=== PATIENT | male | born 2000 | race Caucasian/White ===

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

== ENCOUNTER 2018-01-20 07:28 | Emergency (ER) | payer BC ==
--- NOTE | 2018-01-20 07:32 | ER Report ---
History and Physical Time Seen By MD: 07:31 HPI/ROS CHIEF COMPLAINT: Nausea and vomiting times one week. HISTORY OF PRESENT ILLNESS: Patient is a 17-year-old male here with complaints of nausea and vomiting for one week with reports of several episodes of vomiting each day. He has been attempting to hold down bland food and fluids however rep orts having persistent nausea and vomiting. Denies other medical problems. He does report a remote history of activity-induced asthma but currently is on no medications. Patient admits to chills without fevers. REVIEW OF SYSTEMS: Constitutional: No fever, + chills. Eyes: No discharge. ENT: No sore throat. Cardiovascular: No chest pain, no palpitations. Respiratory: No cough, no shortness of breath. Gastrointestinal: + mild diffuse abdominal pain, + nausea and vomiting. Genitourinary: No hematuria. Musculoskeletal: No back pain. Skin: No rashes. Neurological: No headache. Allergies: Coded Allergies: No Known Drug Allergies (Unverified , 01/20/18) Home Meds Active Scripts Ondansetron (ONDANSETRON ODT) 4 Mg Tab.rapdis, 4 MG PO Q6-8H, #30 TAB Prov:LAURENCE CHAPMAN DO 01/20/18 Hx Substance Use Disorder: No Hx Alcohol Use: No Constitutional Vital Sign - Last 24 Hours 01/20/18 01/20/18 01/20/18 01/20/18 07:28 07:34 07:57 07:58 Temp 98.0 Pulse 84 83 85 Resp 12 B/P (MAP) 136/100 (112) 136/100 Pulse Ox 96 96 O2 Delivery Room Air Room Air 01/20/18 01/20/18 01/20/18 01/20/18 08:00 08:05 08:30 08:35 Pulse 95 76 B/P (MAP) 130/80 (97) 122/76 (91) Pulse Ox 96 94 O2 Delivery Room Air Room Air 01/20/18 09:00 B/P (MAP) 122/76 (91) Physical Exam General Appearance: The patient is alert, has no immediate need for airway protection and no signs of toxicity. NAD Eyes: Pupils equal and round no pallor or injection. ENT, Mouth: Mucous membranes are moist. Respiratory: There are no retractions, lungs are clear to auscultation. Cardiovascular: Regular rate and rhythm. Gastrointestinal: Abdomen is soft and + mildly tender in all quadrants without rebound or guarding, no masses, bowel sounds normal. Neurological: No focal neuro deficits Skin: Warm and dry, no rashes. Musculoskeletal: Neck is supple non tender. Extremities are nontender, nonswollen and have full range of motion. DIFFERENTIAL DIAGNOSIS: After history and physical exam differential diagnosis was considered for abdominal pain including but not limited to appendicitis, cholecystitis, gastritis and urinary tract infection, gastroenteritis, food poisoning, viral syndrome Medical Decision Making Data Points Result Diagram: 01/20/18 0811 01/20/18 0811 Laboratory Hematology Test 01/20/18 07:32 01/20/18 08:11 Urine Color Yellow Urine Clarity Clear Urine pH 7.0 pH (4.8-9.5) Urine Specific [place] 1.015 Urine Protein Negative mg/dL (NEGATIVE) Urine Glucose (UA) Negative mg/dL (NEGATIVE) Urine Ketones Negative mg/dL (NEGATIVE) Urine Blood Negative (NEGATIVE) Urine Nitrite Negative (NEGATIVE) Urine Bilirubin Negative (NEGATIVE) Urine Urobilinogen Negative mg/dL (0.2-1.9) Urine Leukocyte Esterase Negative (NEGATIVE) Urine RBC <1 /HPF (0-2/HPF) Urine WBC <1 /HPF (0-5/HPF) Urine Squamous Epithelial Cells None /LPF (</=FEW) Urine Bacteria Negative /HPF (NONE-FEW) Urine Mucus None /HPF (NONE-FEW) Red Blood Count 5.46 M/uL (4.00-5.60) Mean Corpuscular Volume 90.0 fL (80.0-96.0) Mean Corpuscular Hemoglobin 30.8 pg (26.0-33.0) Mean Corpuscular Hemoglobin Concent 34.2 g/dL (32.0-36.0) Red Cell Distribution Width 13.3 % (11.5-14.5) Mean Platelet Volume 8.3 fL (7.2-11.1) Neutrophils (%) (Auto) 70.5 % (39.4-72.5) Lymphocytes (%) (Auto) 13.2 % (17.6-49.6) Monocytes (%) (Auto) 9.6 % (4.1-12.4) Eosinophils (%) (Auto) 6.1 % (0.4-6.7) Basophils (%) (Auto) 0.6 % (0.3-1.4) Nucleated RBC Relative Count (auto) 0.0 /100WBC Neutrophils # (Auto) 6.9 K/uL (2.0-7.4) Lymphocytes # (Auto) 1.3 K/uL (1.3-3.6) Monocytes # (Auto) 0.9 K/uL (0.3-1.0) Eosinophils # (Auto) 0.6 K/uL (0.0-0.5) Basophils # (Auto) 0.1 K/uL (0.0-0.1) Nucleated RBC Absolute Count (auto) 0.00 K/uL Peripheral Blood Smear No Y/N Sodium Level 140 mmol/L (137-145) Potassium Level 4.4 mmol/L (3.5-5.0) Chloride Level 105 mmol/L (98-107) Carbon Dioxide Level 26 mmol/L (22-30) Blood Urea Nitrogen 12 mg/dl (9-21) Creatinine 0.70 mg/dl (0.66-1.25) Glomerular Filtration Rate Calc > 60.0 Random Glucose 106 mg/dl (75-110) Calcium Level 9.9 mg/dl (8.4-10.2) Total Bilirubin 1.1 mg/dl (0.2-1.3) Aspartate Amino Transf (AST/SGOT) 19 U/L (0-35) Alanine Aminotransferase (ALT/SGPT) 25 U/L (0-56) Alkaline Phosphatase 52 U/L (0-126) C-Reactive Protein < 0.5 mg/dl (<1.0) Total Protein 7.8 g/dl (6.3-8.2) Albumin 4.6 g/dl (3.5-5.0) Lipase 71 U/L (23-300) Chemistry Test 01/20/18 07:32 01/20/18 08:11 Urine Color Yellow Urine Clarity Clear Urine pH 7.0 pH (4.8-9.5) Urine Specific [place] 1.015 Urine Protein Negative mg/dL (NEGATIVE) Urine Glucose (UA) Negative mg/dL (NEGATIVE) Urine Ketones Negative mg/dL (NEGATIVE) Urine Blood Negative (NEGATIVE) Urine Nitrite Negative (NEGATIVE) Urine Bilirubin Negative (NEGATIVE) Urine Urobilinogen Negative mg/dL (0.2-1.9) Urine Leukocyte Esterase Negative (NEGATIVE) Urine RBC <1 /HPF (0-2/HPF) Urine WBC <1 /HPF (0-5/HPF) Urine Squamous Epithelial Cells None /LPF (</=FEW) Urine Bacteria Negative /HPF (NONE-FEW) Urine Mucus None /HPF (NONE-FEW) White Blood Count 9.8 k/uL (4.5-11.0) Red Blood Count 5.46 M/uL (4.00-5.60) Hemoglobin 16.8 g/dL (14.0-18.0) Hematocrit 49.1 % (42.0-52.0) Mean Corpuscular Volume 90.0 fL (80.0-96.0) Mean Corpuscular Hemoglobin 30.8 pg (26.0-33.0) Mean Corpuscular Hemoglobin Concent 34.2 g/dL (32.0-36.0) Red Cell Distribution Width 13.3 % (11.5-14.5) Platelet Count 254 K/uL (150-450) Mean Platelet Volume 8.3 fL (7.2-11.1) Neutrophils (%) (Auto) 70.5 % (39.4-72.5) Lymphocytes (%) (Auto) 13.2 % (17.6-49.6) Monocytes (%) (Auto) 9.6 % (4.1-12.4) Eosinophils (%) (Auto) 6.1 % (0.4-6.7) Basophils (%) (Auto) 0.6 % (0.3-1.4) Nucleated RBC Relative Count (auto) 0.0 /100WBC Neutrophils # (Auto) 6.9 K/uL (2.0-7.4) Lymphocytes # (Auto) 1.3 K/uL (1.3-3.6) Monocytes # (Auto) 0.9 K/uL (0.3-1.0) Eosinophils # (Auto) 0.6 K/uL (0.0-0.5) Basophils # (Auto) 0.1 K/uL (0.0-0.1) Nucleated RBC Absolute Count (auto) 0.00 K/uL Peripheral Blood Smear No Y/N Glomerular Filtration Rate Calc > 60.0 Calcium Level 9.9 mg/dl (8.4-10.2) Total Bilirubin 1.1 mg/dl (0.2-1.3) Aspartate Amino Transf (AST/SGOT) 19 U/L (0-35) Alanine Aminotransferase (ALT/SGPT) 25 U/L (0-56) Alkaline Phosphatase 52 U/L (0-126) C-Reactive Protein < 0.5 mg/dl (<1.0) Total Protein 7.8 g/dl (6.3-8.2) Albumin 4.6 g/dl (3.5-5.0) Lipase 71 U/L (23-300) Urinalysis Test 01/20/18 07:32 Urine Color Yellow Urine Clarity Clear Urine pH 7.0 pH (4.8-9.5) Urine Specific [place] 1.015 Urine Protein Negative mg/dL (NEGATIVE) Urine Glucose (UA) Negative mg/dL (NEGATIVE) Urine Ketones Negative mg/dL (NEGATIVE) Urine Blood Negative (NEGATIVE) Urine Nitrite Negative (NEGATIVE) Urine Bilirubin Negative (NEGATIVE) Urine Urobilinogen Negative mg/dL (0.2-1.9) Urine Leukocyte Esterase Negative (NEGATIVE) Urine RBC <1 /HPF (0-2/HPF) Urine WBC <1 /HPF (0-5/HPF) Urine Squamous Epithelial Cells None /LPF (</=FEW) Urine Bacteria Negative /HPF (NONE-FEW) Urine Mucus None /HPF (NONE-FEW) ED Course/Re-evaluation ED Course Patient is a 17-year-old male here with complaints of nausea and vomiting for approximately one week. Patient reports intermittent chills, several episodes of vomiting per day, persistent nausea. Denies severe localized abdominal pains, and there is no rebound or guarding on examination. Patient was notably mildly tachycardic rates around 100, abdominal exam was nonfocal. Patient is afebrile, hemodynamically stable otherwise. Patient labs were found to be unremarkable. Being that the patient's physical exam was unremarkable and lab findings were also unremarkable, imaging was not pursued at this time. I advised the patient to return immediately if you develop fevers, worsening abdominal pain at which time the patient may need further imaging. Patient voiced understanding of plan. He was given 2 L of normal saline fluids, Zofran with significant relief of symptoms. Patient passed oral challenge and was given a prescription for Zofran for outpatient treatment. Patient was stable at time of discharge. Decision to Disposition Date: Jan 20, 2018 Decision to Disposition Time: 09:06 Depart Departure Latest Vital Signs Vital Signs Date Time Temp Pulse Resp B/P (MAP) Pulse Ox O2 Delivery O2 Flow Rate FiO2 01/20/18 09:00 122/76 (91) 01/20/18 08:35 76 94 Room Air 01/20/18 07:57 98.0 12 Impression: Primary Impression: Nausea & vomiting Additional Impression: Dehydration Condition: Improved Disposition: HOME OR SELF-CARE New Scripts Ondansetron (ONDANSETRON ODT) 4 Mg Tab.rapdis 4 MG PO Q6-8H, #30 TAB Prov: LAURENCE CHAPMAN DO 01/20/18 Patient Instructions: Acute Nausea and Vomiting (ED) Additional Instructions: Please drink plenty of water. You may take 1 tablet of Zofran every 6-8 hours as needed for nausea and vomiting. Please return promptly if you develop fevers, worsening abdominal pain, inability keep down food or fluids. Please follow-up with your family doctor in the next week. Problem Qualifiers LAURENCE CHAPMAN DO Jan 20, 2018 07:32
[2018-01-20] MEDS ORDERED: NS(*) 0.9% 1000 ML BAG 1,000 ML IV ONE ×2 (07:52→08:45)
[2018-01-20] MEDS ORDERED: ONDANSETRON 4 MG/2 ML VIAL IVP ONE (07:55)
[2018-01-20 08:24] LABS: PLATELET COUNT, AUTOMATED 254 K/uL (150-450)
[2018-01-20] MEDS ORDERED: ONDA4TAB9 PO (08:59)
[2018-01-20 09:00] VITALS: BP 122/76
== END 2018-01-20 09:38 | disposition home or self-care (01) ==
LOC: ER 07:34
DX: R11.2 Nausea with vomiting, unspecified (principal); E86.0 Dehydration
CPT/HCPCS: 81001; 83690; 85025; 86140; 96361; 96374; 99284; J2405; J7030; 82040; 82247; 82310; 82374; 82435; 82565; 82947; 84075; 84132; 84155; 84295; 84450; 84460; 84520

== ENCOUNTER 2018-03-29 11:33 | Emergency (ER) | payer BC ==
[~2018-03-29 11:33] MED LIST: ONDA4TAB9 PO
--- NOTE | 2018-03-29 11:45 | ER Report ---
History and Physical Time Seen By MD: 11:45 HPI/ROS CHIEF COMPLAINT: Nausea and vomiting HISTORY OF PRESENT ILLNESS: This is a 18-year-old male who presents to the emergency department for nausea and vomiting. Patient states that over the last month he's had nausea and vomiting and diarrhea, no blood noted. He was seen in evaluated in the emergency departments was given some nausea medications which did seem to help a little, however when he was on break he saw his primary care provider in [place], states they were interpreted concerned and no imaging or repeat studies were done at that time. Patient is now back, ready to start sc hool again help her over the last 3 days he's had increased epigastric pain with increased nausea, vomiting and diarrhea, still no blood. No fevers or chills. No chest pain or shortness of breath. No rashes. REVIEW OF SYSTEMS: Constitutional: No fever, no chills. Eyes: No discharge. ENT: No sore throat. Cardiovascular: No chest pain, no palpitations. Respiratory: No cough, no shortness of breath. Gastrointestinal: As above. Genitourinary: No hematuria. Musculoskeletal: No back pain. Skin: No rashes. Neurological: No headache. Allergies: Coded Allergies: No Known Drug Allergies (Unverified , 01/20/18) Home Meds Discontinued Scripts Ondansetron 4 Mg Odt (ONDANSETRON 4 MG ODT) 4 Mg Tab.rapdis, 4 MG PO Q6-8H, #30 TAB Prov:LAURENCE CHAPMAN DO 01/20/18 Past Medical/Surgical History The patient has a past medical and surgical history of wearing glasses. Reviewed Nurses Notes: Yes Hx Substance Use Disorder: No Hx Alcohol Use: No Constitutional Vital Sign - Last 24 Hours 03/29/18 03/29/18 03/29/18 03/29/18 11:42 11:43 12:00 12:03 Temp 98.8 Pulse 90 92 Resp 14 B/P (MAP) 155/114 155/114 (128) 130/87 (101) Pulse Ox 96 95 03/29/18 03/29/18 03/29/18 03/29/18 12:30 12:33 12:38 13:30 Pulse 90 98 B/P (MAP) 130/88 (102) 138/99 (112) Pulse Ox 89 96 03/29/18 13:38 Pulse 93 Pulse Ox 94 Physical Exam General Appearance: patient is alert, has no immediate need for airway protection and no signs of toxicity. Eyes: Pupils equal and round no pallor or injection. ENT, Mouth: Mucous membranes are moist. Respiratory: There are no retractions, lungs are clear to auscultation. Cardiovascular: Regular rate and rhythm. Gastrointestinal: Abdomen is soft, mild left upper quadrant discomfort with palpation, normoactive bowel sounds, no abdominal bruits. No rebound tenderness. Skin: Warm and dry, no rashes. Musculoskeletal: Neck is supple non tender. Extremities are nontender, nonswollen and have full range of motion. DIFFERENTIAL DIAGNOSIS: After history and physical exam differential diagnosis was considered for abdominal pain including but not limited to appendicitis, cholecystitis, gastritis and urinary tract infection.nausea and vomiting including but not limited to gastroenteritis, gastritis, appendicitis, and medication side effect. Medical Decision Making Data Points Result Diagram: 03/29/18 1150 03/29/18 1150 Laboratory Hematology Test 03/29/18 11:50 03/29/18 12:52 Red Blood Count 5.77 M/uL (4.00-5.60) Mean Corpuscular Volume 90.0 fL (80.0-96.0) Mean Corpuscular Hemoglobin 30.6 pg (26.0-33.0) Mean Corpuscular Hemoglobin Concent 34.0 g/dL (32.0-36.0) Red Cell Distribution Width 13.4 % (11.5-14.5) Mean Platelet Volume 8.0 fL (7.2-11.1) Neutrophils (%) (Auto) 70.6 % (39.4-72.5) Lymphocytes (%) (Auto) 14.4 % (17.6-49.6) Monocytes (%) (Auto) 13.1 % (4.1-12.4) Eosinophils (%) (Auto) 1.8 % (0.4-6.7) Basophils (%) (Auto) 0.1 % (0.3-1.4) Nucleated RBC Relative Count (auto) 0.0 /100WBC Neutrophils # (Auto) 8.7 K/uL (2.0-7.4) Lymphocytes # (Auto) 1.8 K/uL (1.3-3.6) Monocytes # (Auto) 1.6 K/uL (0.3-1.0) Eosinophils # (Auto) 0.2 K/uL (0.0-0.5) Basophils # (Auto) 0.0 K/uL (0.0-0.1) Nucleated RBC Absolute Count (auto) 0.00 K/uL Sodium Level 141 mmol/L (137-145) Potassium Level 4.0 mmol/L (3.5-5.0) Chloride Level 103 mmol/L (98-107) Carbon Dioxide Level 22 mmol/L (22-30) Blood Urea Nitrogen 12 mg/dl (9-21) Creatinine 0.80 mg/dl (0.66-1.25) Glomerular Filtration Rate Calc > 60.0 Random Glucose 101 mg/dl (75-110) Calcium Level 10.3 mg/dl (8.4-10.2) Total Bilirubin 2.6 mg/dl (0.2-1.3) Aspartate Amino Transf (AST/SGOT) 25 U/L (0-35) Alanine Aminotransferase (ALT/SGPT) 17 U/L (0-56) Alkaline Phosphatase 72 U/L (0-126) Total Protein 8.9 g/dl (6.3-8.2) Albumin 5.3 g/dl (3.5-5.0) Lipase 94 U/L (23-300) Helicobacter pylori IgG Antibody Negative (NEGATIVE) Urine Color Yellow Urine Clarity Clear Urine pH 6.0 pH (4.8-9.5) Urine Specific Trail 1.025 Urine Protein 30 mg/dL (NEGATIVE) Urine Glucose (UA) Negative mg/dL (NEGATIVE) Urine Ketones 80 mg/dL (NEGATIVE) Urine Blood Negative (NEGATIVE) Urine Nitrite Negative (NEGATIVE) Urine Bilirubin Negative (NEGATIVE) Urine Urobilinogen 2.0 mg/dL (0.2-1.9) Urine Leukocyte Esterase Negative (NEGATIVE) Urine RBC None /HPF (0-2/HPF) Urine WBC 1 /HPF (0-5/HPF) Urine Squamous Epithelial Cells None /LPF (</=FEW) Urine Bacteria Negative /HPF (NONE-FEW) Urine Mucus Few /HPF (NONE-FEW) Chemistry Test 03/29/18 11:50 03/29/18 12:52 White Blood Count 12.3 k/uL (4.5-11.0) Red Blood Count 5.77 M/uL (4.00-5.60) Hemoglobin 17.7 g/dL (14.0-18.0) Hematocrit 51.9 % (42.0-52.0) Mean Corpuscular Volume 90.0 fL (80.0-96.0) Mean Corpuscular Hemoglobin 30.6 pg (26.0-33.0) Mean Corpuscular Hemoglobin Concent 34.0 g/dL (32.0-36.0) Red Cell Distribution Width 13.4 % (11.5-14.5) Platelet Count 275 K/uL (150-450) Mean Platelet Volume 8.0 fL (7.2-11.1) Neutrophils (%) (Auto) 70.6 % (39.4-72.5) Lymphocytes (%) (Auto) 14.4 % (17.6-49.6) Monocytes (%) (Auto) 13.1 % (4.1-12.4) Eosinophils (%) (Auto) 1.8 % (0.4-6.7) Basophils (%) (Auto) 0.1 % (0.3-1.4) Nucleated RBC Relative Count (auto) 0.0 /100WBC Neutrophils # (Auto) 8.7 K/uL (2.0-7.4) Lymphocytes # (Auto) 1.8 K/uL (1.3-3.6) Monocytes # (Auto) 1.6 K/uL (0.3-1.0) Eosinophils # (Auto) 0.2 K/uL (0.0-0.5) Basophils # (Auto) 0.0 K/uL (0.0-0.1) Nucleated RBC Absolute Count (auto) 0.00 K/uL Glomerular Filtration Rate Calc > 60.0 Calcium Level 10.3 mg/dl (8.4-10.2) Total Bilirubin 2.6 mg/dl (0.2-1.3) Aspartate Amino Transf (AST/SGOT) 25 U/L (0-35) Alanine Aminotransferase (ALT/SGPT) 17 U/L (0-56) Alkaline Phosphatase 72 U/L (0-126) Total Protein 8.9 g/dl (6.3-8.2) Albumin 5.3 g/dl (3.5-5.0) Lipase 94 U/L (23-300) Helicobacter pylori IgG Antibody Negative (NEGATIVE) Urine Color Yellow Urine Clarity Clear Urine pH 6.0 pH (4.8-9.5) Urine Specific Trail 1.025 Urine Protein 30 mg/dL (NEGATIVE) Urine Glucose (UA) Negative mg/dL (NEGATIVE) Urine Ketones 80 mg/dL (NEGATIVE) Urine Blood Negative (NEGATIVE) Urine Nitrite Negative (NEGATIVE) Urine Bilirubin Negative (NEGATIVE) Urine Urobilinogen 2.0 mg/dL (0.2-1.9) Urine Leukocyte Esterase Negative (NEGATIVE) Urine RBC None /HPF (0-2/HPF) Urine WBC 1 /HPF (0-5/HPF) Urine Squamous Epithelial Cells None /LPF (</=FEW) Urine Bacteria Negative /HPF (NONE-FEW) Urine Mucus Few /HPF (NONE-FEW) Urinalysis Test 03/29/18 12:52 Urine Color Yellow Urine Clarity Clear Urine pH 6.0 pH (4.8-9.5) Urine Specific Trail 1.025 Urine Protein 30 mg/dL (NEGATIVE) Urine Glucose (UA) Negative mg/dL (NEGATIVE) Urine Ketones 80 mg/dL (NEGATIVE) Urine Blood Negative (NEGATIVE) Urine Nitrite Negative (NEGATIVE) Urine Bilirubin Negative (NEGATIVE) Urine Urobilinogen 2.0 mg/dL (0.2-1.9) Urine Leukocyte Esterase Negative (NEGATIVE) Urine RBC None /HPF (0-2/HPF) Urine WBC 1 /HPF (0-5/HPF) Urine Squamous Epithelial Cells None /LPF (</=FEW) Urine Bacteria Negative /HPF (NONE-FEW) Urine Mucus Few /HPF (NONE-FEW) EKG/Imaging Imaging Location: [facility] [place] Patient: Ana María Dias : 2000 Visit/Account:[id number] Date of Sevice: 03/29/2018 COMPUTED TOMOGRAPHY OF THE Abdomen and Pelvis with CONTRAST INDICATION: Abdominal pain with nausea, vomiting, and diarrhea. TECHNIQUE: Contiguous axial 3.[address] images were obtained through the abdomen and pelvis after 75 mL Isovue-370. Coronal and sagittal reformatted images were submitted. COMPARISON: None.. FINDINGS: Lung bases: Clear Liver and hepatic vasculature: Normal Gallbladder and bile ducts: Normal Spleen: Normal Pancreas: Normal Adrenals: Normal Kidneys, ureters and bladder: Normal Retroperitoneum and aorta: Normal caliber aorta. GI tract, mesentery and peritoneum: No obstruction or distention. No free fluid or free air. Normal appendix is small and gas-filled. Prostate: Unremarkable. Bones and soft tissues: No acute osseous abnormality or significant degenerative findings. IMPRESSION: No clear evidence of acute intra-abdominal abnormality. One of the following dose optimization techniques was utilized in the performance of this exam: Automated exposure control; adjustment of the mA and/or kV according to the patient's size; or use of an iterative reconstruction technique. Specific details can be referenced in the facility's radiology CT exam operational policy. Report Dictated By: Bailee Woodson MD at 03/29/2018 1:29 PM Report E-Signed By: Bailee Woodson MD at 03/29/2018 1:38 PM WSN:[email or web address] ED Course/Re-evaluation Clinical Indication for ER IV: Hydration, IV Access ED Course The patient was admitted to room. A history and physical were obtained. Differential diagnoses were considered. IV was started. A CBC, CMP, 1 L normal saline bolus was given.4 mg IV Zofran, 40 mg IV Protonix with little relief, GI cocktail given with moderate relief.CBC showing white count 12.3, calcium 10.3, total bili 2.6, concentrated urine with ketonuria, and protein, negative H. pylori. Normal lipase. A CT of the abdomen and pelvis showing no acute pathology. I reviewed the results with the patient. As he was feeling better, and no stool sample was collected, I did send the patient home with a prescription for stool samples and the results will go to Dr. Byrd. Patient does have a follow-up appointment next week scheduled. I also started patient on 4 mg Protonix for the next 2 weeks. I also recommended following up with surgery for an endoscopy as there was concern of an ulcer. The patient is unable to come up with a pattern for his nausea vomiting diarrhea, I did not treat with antibiotics as nothing noted on CT, will wait for the stool samples. Mild elevation in WBC's likely from the stress of intermittent vomiting. The patient was agreeable with this plan of care, encouraged to eat a bland to clear liquid diet. No other questions or concerns at this time and discharged home. Decision to Disposition Date: Mar 29, 2018 Decision to Disposition Time: 14:17 Depart Departure Latest Vital Signs Vital Signs Date Time Temp Pulse Resp B/P (MAP) Pulse Ox O2 Delivery O2 Flow Rate FiO2 03/29/18 13:38 93 94 03/29/18 13:30 138/99 (112) 03/29/18 11:42 98.8 14 Impression: Primary Impression: Nausea & vomiting Additional Impression: Diarrhea Condition: Improved Disposition: HOME OR SELF-CARE Referrals: [place] BYRD,ARLENE CAREY MD 5 Days New Scripts Ondansetron Hcl (ZOFRAN) 4 Mg Tablet 4 MG PO Q4-6H PRN for prn, #20 TAB Prov: YONATHAN MUÑOZ 03/29/18 Patient Instructions: Acute Diarrhea (ED), Acute Nausea and Vomiting (ED), Clear Liquid Diet (ED) Additional Instructions: There were no concerning findings today, CT looks normal. Please start 40mg of Protonix once a day for the next 14 days. Follow up with [facility] as scheduled. Drink plenty of fluids. Get plenty of rest. Once you collect a stool sample then return to the front admitting area, with the script. Return to the ED for any other concerns or worsening symptoms. Either a bland diet or clear liquids for the next 24 hours. Problem Qualifiers Primary Impression: Nausea & vomiting Vomiting type: unspecified Vomiting Intractability: non-intractable Qualified Codes: R11.2 - Nausea with vomiting, unspecified Additional Impression: Diarrhea Diarrhea type: unspecified type Qualified Codes: R19.7 - Diarrhea, unspecified YONATHAN MUÑOZ Mar 29, 2018 11:45
[2018-03-29] MEDS ORDERED: ONDANSETRON 4 MG/2 ML VIAL IVP ONE (11:55)
[2018-03-29] MEDS ORDERED: PANTOPRAZOLE SOD 40 MG IV VIAL IVP ONE (11:55)
[2018-03-29] MEDS ORDERED: NS(*) 0.9% 1000 ML BAG 1,000 ML IV ONE (11:55)
[2018-03-29 12:03] LABS: PLATELET COUNT, AUTOMATED 275 K/uL (150-450)
[2018-03-29] MEDS ORDERED: LIDOCAINE 2% VISC SLN 15ML UDC PO ONE (12:45)
[2018-03-29] MEDS ORDERED: MAG HYD/AL HYD/SIMETH 30ML UDC PO ONE (12:45)
[2018-03-29] MEDS ORDERED: IOPAMIDOL 76% 100 ML INFUS BTL 100 ML ONE (12:55)
[2018-03-29 13:30] VITALS: BP 138/99
--- NOTE | 2018-03-29 13:46 | RADIOLOGY IMAGING REPORT ---
FAC[facility] PATIENT NAME: Ana María Dias : 2000 MR: [id number] V: [id number] EXAM DATE: ORDERING PHYSICIAN: YONATHAN MUÑOZ TECHNOLOGIST: Location: [facility] - [place] Patient: Ana María Dias : 2000 Visit/Account:[id number] Date of Sevice: 03/29/2018 COMPUTED TOMOGRAPHY OF THE Abdomen and Pelvis with CONTRAST INDICATION: Abdominal pain with nausea, vomiting, and diarrhea. TECHNIQUE: Contiguous axial 3.[address] images were obtained through the abdomen and pelvis after 75 m L Isovue-370. Coronal and sagittal reformatted images were submitted. COMPARISON: None.. FINDINGS: Lung bases: Clear Liver and hepatic vasculature: Normal Gallbladder and bile ducts: Normal Spleen: Normal Pancreas: Normal Adrenals: Normal Kidneys, ureters and bladder: Normal Retroperitoneum and aorta: Normal caliber aorta. GI tract, mesentery and peritoneum: No obstruction or distention. No free fluid or free air. Normal appendix is small and gas-filled. Prostate: Unremarkable. Bones and soft tissues: No acute osseous abnormality or significant degenerative findings. IMPRESSION: No clear evidence of acute intra-abdominal abnormality. One of the following dose optimization techniques was utilized in the performance of this exam: Autom ated exposure control; adjustment of the mA and/or kV according to the patient's size; or use of an i terative reconstruction technique. Specific details can be referenced in the facility's radiology C T exam operational policy. Report Dictated By: Bailee Woodson MD at 03/29/2018 1:29 PM Report E-Signed By: Bailee Woodson MD at 03/29/2018 1:38 PM WSN:[email or web address]
[2018-03-29] MEDS ORDERED: ONDA4TAB97 PO (21:14)
== END 2018-03-29 14:44 | disposition home or self-care (01) ==
LOC: ER 11:59
DX: R11.2 Nausea with vomiting, unspecified (principal); R19.7 Diarrhea, unspecified
CPT/HCPCS: 74177; 81001; 83690; 85025; 86677; 99283; C9113; J2405; J7030; Q9967; 82040; 82247; 82310; 82374; 82435; 82565; 82947; 84075; 84132; 84155; 84295; 84450; 84460; 84520; 96361; 96374; 96375; 99284

== ENCOUNTER → 2018-04-09 | Outpatient (CLI) | payer BC ==
[~2018-04-09] MED LIST changes: +ONDA4TAB97 PO
--- NOTE | 2018-04-09 13:21 | RADIOLOGY IMAGING REPORT ---
FACILITY: [facility] - [place] PATIENT NAME: Ana María Dias : 2000 MR: [id number] V: [id number] EXAM DATE: ORDERING PHYSICIAN: INDIA ANGUIANO TECHNOLOGIST: Location: [facility] Patient: Ana María Dias : 2000 Visit/Account:[id number] Date of Sevice: 04/09/2018 Exam type: CHEST PA LAT History: Shortness of breath, chest tightness Comparison: None. Findings: There is hyperinflation of the lung chawla. There is mild peribronchial thickening bilaterally. No evidence of lobar infiltrates or pleural effusions. The cardiac silhouette is normal in size. IMPRESSION: 1. Hyperinflation of the lung chawla Mild peribronchial thickening bilaterally. This could be chronic, possibly related to reactive airwa y disease. Differential diagnosis would include an acute peribronchial inflammatory process Report Dictated By: Becki Chaudhari MD at 04/09/2018 1:15 PM Report E-Signed By: Becki Chaudhari MD at 04/09/2018 1:16 PM WSN:[email or web address]
== END ==
LOC: RAD 11:38
PROVIDERS: ATTEND Family Medicine
DX: R91.8 Other nonspecific abnormal finding of lung field (principal)
CPT/HCPCS: 71046